=== PATIENT | female | born 1980 | race African-American/Black ===

== ENCOUNTER → 2016-11-15 | Outpatient (CLI) | payer MEDICAID ==
--- NOTE | 2016-11-16 11:37 | RADIOLOGY REPORT (SQ) ---
EXAM DESCRIPTION: MRI RT UPPER JOINT COMBO COMPLETED DATE/TIME: 11/15/2016 8:55 pm REASON FOR STUDY: PAIN IN RIGHT WRIST M25.531 PAIN IN RIGHT WRIST COMPARISON: Right hand films 05/13/2011 TECHNIQUE: Right wrist images acquired and stored on PACS. Multiplanar images include fat sensitive sequences as T1, fluid sensitive sequences as FST2/STIR, cartilage sensitive sequences as FSPD, grad ient echo sequences. Postcontrast T1 fat-sat axial coronal and sagittal images were also obtained. Patient was injected with 14 mL of IV ProHance gadolinium. Estimated GFR greater than 60 LIMITATIONS: None. FINDINGS: At the intersection of the capitate bone, trapezoid, and base of the 3rd metacarpal, there is a bulky bone spur protrudes dorsally off the capitate and base of the 3rd metacarpal. This displ aces the extensor are carpi the radialis brevis tendon dorsally. There is minimal enhancement of the peritendinous soft tissues on the post gadolinium images indicating some clinical inflammatory connell e. These findings are best shown on axial images 9-12, sagittal image 11, and coronal images 4-6. Along the radial aspect of the bone spur, a 4 x 3 x 4 mm ganglion cyst is present off the dorsal aspe ct of the wrist, best shown on axial image 12, sagittal image 9, and coronal image 5. BONE MARROW: No alteration of signal to suggest marrow replacement or edema. No occult fracture. No abnormal bone marrow enhancement CARPAL ALIGNMENT AND ARTICULATION: Minimal negative ulnar variance at level of distal RUJ. Normal cap itolunate angle. No widening of scapholunate articulation. EFFUSION: None noted. No loose bodies. SCAPHOLUNATE LIGAMENT: Intact without tear. LUNATE-TRIQUETRAL LIGAMENT: Intact without tear. TFC COMPLEX: Radial and ulnar attachments normal. Meniscus intact. Extensor carpi ulnaris tendon norm al without tendinopathy. No contrast enhancement around the TFC. EXTRINSIC LIGAMENTS AND DISTAL RADIO-ULNAR JOINT: Dorsal and volar distal RUJ intact without subluxat ion of the distal ulna. 1-6 EXTENSOR COMPARTMENTS: Normal. Specifically no tendinopathy of the abductor pollicis longus or ex tensor pollicis brevis to suggest de Quervain's Syndrome. CARPAL TUNNEL AND MEDIAN NERVE: Normal volume and morphology of the carpal tunnel proximally at the l evel of the radiocarpal joint and distally at the hook of the hamate. No thickening or signal alterat ion of the median nerve. OTHER: No other significant finding. IMPRESSION: Bulky bony spurring at the intersection of the capitate, trapezoid, and base of the 3rd metacarpal. This displaces the extensor carpi radialis brevis tendon dorsally. Adjacent small 4 x 3 x 4 mm ganglion cyst. TECHNICAL DOCUMENTATION: JOB ID: [id number] [email or web address]- All Rights Reserved
== END ==
LOC: RAD 18:59
PROVIDERS: ATTEND Orthopaedic Surgery
DX: M25.531 Pain in right wrist (principal); M67.431 Ganglion, right wrist; M77.9 Enthesopathy, unspecified
CPT/HCPCS: 82565; 73223; A9576 ×2

== ENCOUNTER 2017-04-02 07:09 | Day surgery (SDC) | payer MEDICAID ==
[2017-03-28 11:09] LABS: APPEARANCE,URINE CLOUDY; BILIRUBIN,URINE NEGATIVE (NEGATIVE); COLOR,URINE YELLOW; GLUCOSE, URINE NEGATIVE (NEGATIVE); KETONES,URINE NEGATIVE (NEGATIVE); LEUKOCYTE ESTERASE,URINE SMALL (NEGATIVE); NITRITE,URINE NEGATIVE (NEGATIVE); PROTEIN,URINE 30 mg/dL (NEGATIVE); URINE SPECIFIC GRAVITY 1.011; UROBILINOGEN,URINE NEGATIVE mg/dL (<2.0)
[2017-03-28 11:23] LABS: ABSOLUTE BASOPHILS # (AUTO) 0.1 10^3/uL (0.0-0.2); ABSOLUTE EOSINOPHILS # (AUTO) 0.1 10^3/uL (0.0-0.6); ABSOLUTE MONOCYTES (AUTO) 0.5 10^3/uL (0.1-1.4); ABSOLUTE NEUT (AUTO) 7.3 10^3/uL (1.7-8.2); BASOPHILS % (AUTO) 0.6 % (0-2); EOSINOPHILS % (AUTO) 0.6 % (0-6); HEMATOCRIT 39.8 % (36.0-47.0); LYMPHOCYTES % (AUTO) 20.6 % (13-45); MEAN CORPUSCULAR HEMOGLOBIN 26.8 pg (27.0-33.4); MEAN CORPUSCULAR HGB CONC 32.6 g/dL (32.0-36.0); MEAN CORPUSCULAR VOLUME 82 fl (80-97); MONOCYTES % (AUTO) 4.6 % (3-13); PLATELET COUNT 721 10^3/uL (150-450); RED BLOOD COUNT 4.85 10^6/uL (3.72-5.28); RED CELL DISTRIBUTION WIDTH 15.3 % (11.5-14.0); SEGMENTED NEUTROPHILS % (AUTO) 73.6 % (42-78); TOTAL CELLS COUNTED % (AUTO) 100 %; WHITE BLOOD COUNT 9.9 10^3/uL (4.0-10.5)
[2017-03-28 11:51] LABS: ANION GAP 11 (5-19); BLOOD UREA NITROGEN 13 mg/dL (7-20); CALCIUM 10.1 mg/dL (8.4-10.2); CARBON DIOXIDE 22 mmol/L (22-30); CHLORIDE 107 mmol/L (98-107); GLUCOSE 89 mg/dL (75-110); POTASSIUM 5.3 mmol/L (3.6-5.0); SODIUM 139.5 mmol/L (137-145)
--- NOTE | 2017-03-28 12:09 | RADIOLOGY REPORT (SQ) ---
EXAM DESCRIPTION: CHEST PA/LATERAL COMPLETED DATE/TIME: 03/28/2017 11:07 am REASON FOR STUDY: PRE OP COMPARISON: None. EXAM PARAMETERS: NUMBER OF VIEWS: two views TECHNIQUE: Digital Frontal and Lateral radiographic views of the chest acquired. RADIATION DOSE: NA LIMITATIONS: none FINDINGS: LUNGS AND PLEURA: No opacities, masses or pneumothorax. No pleural effusion. MEDIASTINUM AND HILAR STRUCTURES: No masses or contour abnormalities. HEART AND VASCULAR STRUCTURES: Heart normal size. No evidence for failure. BONES: No acute findings. HARDWARE: None in the chest. OTHER: No other significant finding. IMPRESSION: NO SIGNIFICANT RADIOGRAPHIC FINDING IN THE CHEST. TECHNICAL DOCUMENTATION: JOB ID: [id number] [employer]- All Rights Reserved
--- NOTE | 2017-03-28 22:37 | EKG REPORT ---
SEVERITY:- NORMAL ECG - SINUS RHYTHM : Confirmed by: Melly Wesley 28-Mar-2017 22:36:46
[~2017-04-02 07:09] MED LIST: CEFAZOLIN 2 GM/D5W RTU 2 GM/50 ML RTUPB IV PRN; LACTATED RINGERS 1000 ML IV PRN; LIDOCAINE 0.5% INJ-PF (5 MG/ML) 50 ML SDV SUBCUT PRN
[2017-04-02] MEDS ORDERED: BUPIVACAINE HCL 0.5 % INJ/PF 30 ML SDV ONE (07:12)
[2017-04-02] MEDS ORDERED: FENTANYL CITRATE INJ/PF 100 MCG/2 ML AMPUL ONE ×4 (08:16→10:56)
[2017-04-02] MEDS ORDERED: ONDANSETRON HCL INJ/PF 4 MG/2 ML SDV ONE (08:16)
[2017-04-02] MEDS ORDERED: MIDAZOLAM 2 MG/2 ML INJ ONE (08:16)
[2017-04-02] MEDS ORDERED: PROPOFOL INJ 200 MG/20 ML VIAL IV ONE (08:16)
[2017-04-02] MEDS ORDERED: MEPERIDINE HCL/PF INJ 25 MG/1 ML DISP.SYRIN IV PRN (09:31)
[2017-04-02] MEDS ORDERED: DIPHENHYDRAMINE HCL 50 MG/ML VIAL IV PRN (09:31)
[2017-04-02] MEDS ORDERED: ONDANSETRON HCL INJ/PF 4 MG/2 ML SDV IV PRN ×2 (09:31→10:37)
[2017-04-02] MEDS ORDERED: FENTANYL CITRATE INJ/PF 100 MCG/2 ML AMPUL IV PRN ×2 (09:31)
--- NOTE | 2017-04-02 10:35 | Operative Report ---
Operative Report DATE OF SURGERY: 04/02/17 PREOPERATIVE DIAGNOSIS: Right carpometacarpal boss POSTOPERATIVE DIAGNOSIS: Same OPERATION: Excision right carpometacarpal boss SURGEON: DEBO VACA ANESTHESIA: GA TISSUE REMOVED OR ALTERED: Metacarpal boss sent to pathology COMPLICATIONS: None ESTIMATED BLOOD LOSS: Minimal PROCEDURE: Indication for above procedure: 36-year-old female with complaints of dorsal wrist pain with prominence. Patient radiographic findings and MRI confirming carpal metacarpal boss which is causing irritation of her overlying extensor tendons. We attempted conservative measures without resolution of patient's symptoms at that point decision was made to proceed with operative intervention. Procedure In Detail: Patient was seen and evaluated in the preoperative holding area. The RIGHT upper extremity was initialized and marked. Patient received 2g of Ancef IV for bacterial prophylaxis. Patient was taken back to the operative room where transferred to the operative table and placed under general anesthesia. Once they were adequately anesthetized a nonsterile tourniquet was placed on the upper extremity. A surgical team debriefing was performed ensuring all instrumentation was available, the surgical procedure was discussed with possible concerns reviewed. The upper extremity was prepped with chlorhexidine and alcohol and draped in a sterile fashion. A timeout was done identifying correct patient, procedure and extremity everyone in attendance agree with this and verbalized no concerns. The extremity was exsanguinated the tourniquet was inflated to 250 mmHg. Transverse skin incision was made centered over patient's carpometacarpal boss at the second third metacarpal bases. Blunt dissection was performed any superficial veins were coagulated with bipolar cautery. The interval between the ECRB and ECRL was then split exposing the metacarpal boss. This was elevated subperiosteally to completely localize the metacarpal boss involving the second and third carpometacarpal joint. I used a rongeur to excise the metacarpal boss. There was still remaining bone dorsally thus with a small osteotome I excised the excess bony overgrowth until only normal cartilage remained. Once complete this area was smoothed with a rasp to avoid postoperative irritation. There is no evidence of CMC instability after bone excision. C-arm fluoroscopy was obtained confirming adequate excision without evidence of joint irregularity. The wound was then copiously irrigated with normal saline. The bone edges were covered with bone wax. I then closed the capsule over the exposed bone with interrupted 3-0 Monocryl suture. Skin was closed with a running subcuticular 4- 0 Monocryl reinforced with Dermabond and Steri-Strips. 20 cc of 0.5% Marcaine with epinephrine was injected for postoperative pain control. Patient was placed in a dorsal plaster splint. Sponge counts, instrument counts, needle counts counts were correct. Patient was then awoken from anesthesia. Transferred from the operating room table to the operating room stretcher. There was no intraoperative complications patient tolerated procedure well stable to PACU. Postoperative plan: Patient will follow-up the office in 2 weeks at which point we will transition the patient into a Exos wrist brace.
[2017-04-02] MEDS ORDERED: MORPHINE SULFATE 10 MG/ML INJ IV PRN (10:37)
[2017-04-02] MEDS ORDERED: OXYCODONE-ACETAMINOPHEN 5-325 MG TABLET PO PRN (10:37)
--- NOTE | 2017-04-02 10:37 | Discharge Summary ---
Discharge Summary (SDC) - Discharge Final Diagnosis: Right Wrist Metacarpal Boss Date of Surgery: 04/02/17 Discharge Date: 04/02/17 Condition: Good Treatment or Instructions: Schedule Follow Up w/ Dr. Noel Reyes @ [facility] to be seen in 10-14 days or as scheduled [place]: [place]: [place]: Ice and elevate Keep splint clean/dry/intact. If your fingers become numb please unwrap the Jose D wrap but leave the splint in place, if the sensation does not return within 30 minutes please return to the emergency department. May begin finger range of motion attempting to make full fist. Please use ibuprofen (Motrin or Advil) 600-800 mg every 8 hours as needed for pain or fever. You may also use acetaminophen (Tylenol) 1000 mg every 4-6 hours as needed for pain or fever. Please be aware that many medications contain acetaminophen, do not exceed a total of 1000 mg of acetaminophen every 6 hours. If ibuprofen and acetaminophen are not sufficient for your pain you may take the Percocet/Tijeras. Please be aware that the Percocet/Tijeras does contain Tylenol. Stool softener of choice when on pain medication. Prescriptions: Hydrocodone/Acetaminophen [Tijeras 5-325 mg Tablet] 1 tab PO Q6 PRN #20 tablet PRN Reason: Referrals: DONAL MARINELLI MD [Primary Care Provider] - Respiratory Treatments at Home: Deep Breathing/Coughing Discharge Activity: No Lifting Over 10 Pounds, No Lifting/Push/Pulling Report the Following to Your Physician Immediately: Fever over 101 Degrees, Unusual Bleeding, Redness, Swelling, Warmth, Increased Soreness
[2017-04-02] MEDS: FENTANYL CITRATE INJ/PF 100 MCG/2 ML AMPUL IV PRN ×2 (10:58→11:04)
[2017-04-02] MEDS ORDERED: ONDANSETRON 4 MG TAB.RAPDIS ONE (12:36)
[2017-04-02 12:54] VITALS: BP 158/100
--- NOTE | 2017-04-02 16:03 | RADIOLOGY REPORT (SQ) ---
EXAM DESCRIPTION: NO CHG FLUORO; WRIST RIGHT 2 VIEWS COMPLETED DATE/TIME: 04/02/2017 10:59 am REASON FOR STUDY: EXCISION RT CARPOMETACARPAL BASE ASST WITH FLUORO IN OR M77.21 PERIARTHRITIS, RIG HT WRIST COMPARISON: None. FLUOROSCOPY TIME: 9 seconds. 3 images saved to PACS. TECHNIQUE: Intra-operative images acquired during surgical procedure to evaluate progress. NUMBER OF IMAGES: 3 LIMITATIONS: None. FINDINGS: Images of the wrist acquired during the procedure. IMPRESSION: IMAGE(S) OBTAINED DURING PROCEDURE. COMMENT: Quality ID [id number]: Final reports for procedures using fluoroscopy that document radiation exp osure indices, or exposure time and number of fluorographic images (if radiation exposure indices are not available) Please consult full operative report of the attending physician for description of the procedure. TECHNICAL DOCUMENTATION: JOB ID: [id number] [employer]- All Rights Reserved
== END 2017-04-02 12:45 | disposition home or self-care (01) ==
LOC: OROUT 07:09
PROVIDERS: ATTEND Orthopaedic Surgery
PROC: 0PBP0ZZ Excision of Right Metacarpal, Open Approach (ICD-10-PCS; principal; 2017-04-02 09:30)
DX: M77.9 Enthesopathy, unspecified (principal); M25.731 Osteophyte, right wrist; I10 Essential (primary) hypertension; E78.5 Hyperlipidemia, unspecified; Z79.899 Other long term (current) drug therapy
CPT/HCPCS: 26230; 93005; 36415 ×2; 84132; 84703; 85025; 80048; 81001; 88304 ×2; 88311; 71046; 73100; 93010; J2250; J3490; S0119; J3010; J2405; J2704; J0690; 01830

== ENCOUNTER 2017-08-29 05:20 | Inpatient (IN) | payer MEDICAID ==
[2017-08-20 10:39] LABS: HEMATOCRIT 41.5 % (36.0-47.0); HEMOGLOBIN 13.5 g/dL (12.0-15.5); MEAN CORPUSCULAR HEMOGLOBIN 26.9 pg (27.0-33.4); MEAN CORPUSCULAR HGB CONC 32.6 g/dL (32.0-36.0); MEAN CORPUSCULAR VOLUME 82 fl (80-97); PLATELET COUNT 555 10^3/uL (150-450); RED BLOOD COUNT 5.03 10^6/uL (3.72-5.28); RED CELL DISTRIBUTION WIDTH 15.5 % (11.5-14.0); WHITE BLOOD COUNT 9.1 10^3/uL (4.0-10.5)
[2017-08-20 10:59] LABS: APPEARANCE,URINE SLIGHTLY-CLOUDY; BILIRUBIN,URINE NEGATIVE (NEGATIVE); COLOR,URINE YELLOW; GLUCOSE, URINE NEGATIVE (NEGATIVE); KETONES,URINE NEGATIVE (NEGATIVE); LEUKOCYTE ESTERASE,URINE TRACE (NEGATIVE); NITRITE,URINE NEGATIVE (NEGATIVE); PROTEIN,URINE 30 mg/dL (NEGATIVE); UROBILINOGEN,URINE NEGATIVE mg/dL (<2.0)
[2017-08-20 11:06] LABS: ALANINE AMINOTRANSFERASE 19 U/L (9-52); ALBUMIN 4.1 g/dL (3.5-5.0); ALKALINE PHOSPHATASE 70 U/L (38-126); ANION GAP 12 (5-19); ASPARTATE AMINO TRANSFERASE 26 U/L (14-36); BILIRUBIN,DIRECT 0.4 mg/dL (0.0-0.4); BILIRUBIN,TOTAL 0.6 mg/dL (0.2-1.3); BLOOD UREA NITROGEN 16 mg/dL (7-20); CALCIUM 9.7 mg/dL (8.4-10.2); CARBON DIOXIDE 22 mmol/L (22-30); CHLORIDE 107 mmol/L (98-107); GLUCOSE 111 mg/dL (75-110); SODIUM 141.1 mmol/L (137-145); TOTAL PROTEIN 7.7 g/dL (6.3-8.2)
[~2017-08-29 05:20] MED LIST changes: +CEFAZOLIN 1 GM/D5W RTU 1 GM/50 ML RTUPB IV PRN; -CEFAZOLIN 2 GM/D5W RTU 2 GM/50 ML RTUPB IV PRN
[2017-08-29] MEDS ORDERED: MIDAZOLAM 2 MG/2 ML INJ ONE (06:49)
[2017-08-29] MEDS ORDERED: LIDOCAINE 2% INJ-PF (20 MG/ML) 10 ML AMPUL ONE (06:49)
[2017-08-29] MEDS ORDERED: KETOROLAC TROMETHAMINE 60 MG/2 ML SDV ONE (06:49)
[2017-08-29] MEDS ORDERED: FENTANYL CITRATE INJ/PF 250 MCG/5 ML AMPULE ONE ×2 (06:49→08:33)
[2017-08-29] MEDS ORDERED: MORPHINE SULFATE 10 MG/ML INJ ONE (06:50)
[2017-08-29] MEDS ORDERED: PROPOFOL INJ 200 MG/20 ML VIAL IV ONE (06:50)
[2017-08-29] MEDS ORDERED: EPHEDRINE SULFATE INJ 50 MG/1 ML AMPULE ONE (06:50)
[2017-08-29] MEDS ORDERED: ACETAMINOPHEN 1,000 MG/100 ML RTUPB IV ONE (06:50)
[2017-08-29] MEDS ORDERED: ONDANSETRON HCL INJ/PF 4 MG/2 ML SDV ONE (06:50)
[2017-08-29] MEDS ORDERED: DEXAMETHASONE SOD PHOSPHATE INJ 4 MG/1 ML VIAL ONE (06:50)
[2017-08-29] MEDS ORDERED: BUPIVACAINE HCL 0.25 % INJ/PF (2.5 MG/1 ML) 30 ML VIAL ONE (07:08)
[2017-08-29] MEDS ORDERED: CEFAZOLIN INJ 1 GM VIAL ONE (07:41)
[2017-08-29] MEDS ORDERED: MEPERIDINE HCL/PF INJ 25 MG/1 ML DISP.SYRIN IV PRN (08:28)
[2017-08-29] MEDS ORDERED: ONDANSETRON HCL INJ/PF 4 MG/2 ML SDV IV PRN (08:28)
[2017-08-29] MEDS ORDERED: FENTANYL CITRATE INJ/PF 100 MCG/2 ML AMPUL IV PRN ×3 (08:28)
[2017-08-29] MEDS ORDERED: PROMETHAZINE HCL INJ 25 MG/1 ML VIAL IV PRN ×2 (08:28)
[2017-08-29] MEDS ORDERED: MORPHINE SULFATE 10 MG/ML INJ IV PRN (08:28)
[2017-08-29] MEDS ORDERED: DIPHENHYDRAMINE HCL 50 MG/ML VIAL IV PRN (08:28)
--- NOTE | 2017-08-29 09:33 | OPERATIVE REPORT E ---
Operative Report NAME: KLEVER MAZA : 1980 AGE: 36Y DATE OF SURGERY: 08/29/2017 ROOM: PREOPERATIVE DIAGNOSIS: Fibroids. POSTOPERATIVE DIAGNOSIS: Fibroids. OPERATION: Attempted robotic hysterectomy with diagnostic laparoscopy, open laparotomy with BENNY and bilateral salpingectomy. SURGEON: Stephanie SIM M.D. ANESTHESIA: General. ESTIMATED BLOOD LOSS: Approximately 500 mL. TISSUE REMOVED: Uterus and tubes. PROCEDURE: The patient was placed in a dorsal supine position, prepped, and draped in a sterile fashion. A speculum was placed. The cervix was visualized and grasped with a single-tooth tenaculum. The uterus was sounded to a depth of 15 cm. A uterine manipulator was placed per protocol and attention turned to the abdomen where a supraumbilical incision was made. The laparoscope was then introduced after insufflation of the abdomen and the uterus contained multiple fibroids extending up to the umbilicus. It was determined at that point that it was safer to do an open procedure. The laparoscope was removed, abdomen deflated, trocar sleeves removed, and incisions closed with 0 Vicryl for the fascia and 4-0 Vicryl subcutaneous. The midline incision was made just above the symphysis to the umbilicus and carried around to the left and approximately 3 cm above. The fascia was opened with sharp dissection and parietal peritoneum was entered with sharp dissection. The bowel was packed with wet lap packs and the O'Marko-O'Pham retractor was placed. Prior to this time the uterine manipulator was removed. The rounds were identified and sutured and divided, and then 2 myomectomies were done for 1 fibroid on the right that was approximately 18 cm x 10 cm and then on the left approximately 8 x 5 cm. Using serial clamps on each side of the uterus, each pedicle was divided and sutured with 2-0 Vicryl. This was taken down to the level slightly above the cervix. The uterus was then removed and the remaining cervix removed by clamping each pedicle, dividing, and suturing with 2-0 Vicryl. The cervix was crossclamped and the cervix removed. The cuff was closed with interrupted suture of 2-0 Vicryl. Hemostasis was noted, the uterus having been removed. The abdomen was irrigated with copious amounts of irrigation. Hemostasis was noted. Her urine remained clear throughout the procedure. The retractor was removed, as were the packs. Fascia was closed with #1 PDS in a running fashion, the subcutaneous with interrupted 0 plain, and the skin with chantal. The patient tolerated it well and was taken to the recovery room in good condition. DICTATING PHYSICIAN: Stephanie SIM M.D. [id number] PHY#: [id number] ID: [id number] JOB#: [id number] ACCT: [id number] cc:Stephanie SIM M.D. >
[2017-08-29] MEDS ORDERED: HYDROMORPHONE HCL 2 MG TABLET PO PRN (09:54)
[2017-08-29] MEDS ORDERED: VECURONIUM BROMIDE INJ 10 MG VIAL IV ONE (12:26)
[2017-08-29] MEDS ORDERED: ROCURONIUM BROMIDE INJ 50 MG/5 ML VIAL IV ONE (12:26)
[2017-08-29] MEDS ORDERED: GLYCOPYRROLATE INJ 0.4 MG/2 ML VIAL ONE (12:26)
[2017-08-29] MEDS ORDERED: NEOSTIGMINE METHYLSULFATE 10 MG/10 ML VIAL ONE (12:26)
[2017-08-29] MEDS: DEXTROSE 5%-LACTATED RINGERS 1,000 ML IV PRN (14:24)
[2017-08-29] MEDS: MORPHINE SULFATE 10 MG/ML INJ IV PRN (14:24)
[2017-08-29] MEDS: IBUPROFEN 800 MG TABLET PO SCH ×2 (14:25→22:03)
[2017-08-29] MEDS: MAGNESIUM OXIDE 400 MG TABLET PO SCH (17:38)
[2017-08-29] MEDS: FUROSEMIDE 20 MG TABLET PO SCH (17:41)
[2017-08-29] MEDS: ONDANSETRON 4 MG TAB.RAPDIS PO PRN (19:02)
[2017-08-30] MEDS: ONDANSETRON 4 MG TAB.RAPDIS PO PRN ×3 (02:40→17:26)
[2017-08-30] MEDS: IBUPROFEN 800 MG TABLET PO SCH ×2 (05:17→14:10)
[2017-08-30] MEDS: DEXTROSE 5%-LACTATED RINGERS 1,000 ML IV PRN (07:20)
[2017-08-30] MEDS: MORPHINE SULFATE 10 MG/ML INJ IV PRN (08:38)
[2017-08-30] MEDS ORDERED: [UNRECOGNIZED DRUG - OTHER] TP SCH (10:00)
[2017-08-30] MEDS ORDERED: (PENDING PHARMACY ID) (Enalapril Maleate [Enalapril Maleate] 20 MG) PO SCH (10:00)
[2017-08-30] MEDS ORDERED: MV CAL MIN PO SCH (10:00)
[2017-08-30] MEDS ORDERED: IRON PO SCH (10:00)
[2017-08-30] MEDS ORDERED: LUT PO SCH (10:00)
[2017-08-30] MEDS ORDERED: FOLIC ACID PO SCH (10:00)
[2017-08-30] MEDS ORDERED: CYCLOSPORINE 100 MG PO SCH (10:00)
[2017-08-30] MEDS: PRENATAL VITAMIN W DHA CAPSULE PO SCH (10:05)
[2017-08-30] MEDS: CYCLOSPORINE MODIFIED 100 MG PO SCH (10:05)
[2017-08-30] MEDS: FUROSEMIDE 20 MG TABLET PO SCH ×2 (10:06→17:25)
[2017-08-30] MEDS: ENALAPRIL MALEATE 10 MG TABLET PO SCH (10:06)
[2017-08-30] MEDS: OXYCODONE-ACETAMINOPHEN 5-325 MG TABLET PO PRN ×2 (10:06→19:31)
[2017-08-30] MEDS: MAGNESIUM OXIDE 400 MG TABLET PO SCH ×2 (10:06→17:25)
--- NOTE | 2017-08-30 11:29 | PDOC PROGRESS REPORT ---
Subjective Progress Note for:: 08/30/17 Subjective:: pt does not have any complaints Reason For Visit: R10.31 RIGHT LOWER QUADRANT PAIN Physical Exam - Physical Exam Vital Signs: Temp Pulse Resp BP Pulse Ox 98.4 F 113 H 18 133/70 H 99 08/30/17 07:19 08/30/17 07:19 08/30/17 07:19 08/30/17 07:19 08/30/17 07:19 Intake & Output 08/29/17 08/30/17 08/31/17 06:59 06:59 06:59 Intake Total 0 4380 Output Total 2650 Balance 0 1730 Weight 78.02 kg General appearance: PRESENT: no acute distress Respiratory exam: PRESENT: clear to auscultation rupali Neurological exam: PRESENT: alert Result Laboratory Results: 08/20/17 10:14 08/29/17 06:03 Assessment & Plan - Diagnosis (1) Fibroid (bleeding) (uterine) Is this a current diagnosis for this admission?: Yes (2) Dysmenorrhea Is this a current diagnosis for this admission?: Yes - Time Time Spent with patient: Less than 15 minutes Medications reviewed and adjusted accordingly: Yes Anticipated discharge: Home Within: within 24 hours
[2017-08-30] MEDS ORDERED: BISACODYL 10 MG SUPP.RECT PR ONE (15:00)
[2017-08-31] MEDS: OXYCODONE-ACETAMINOPHEN 5-325 MG TABLET PO PRN ×2 (01:33→09:36)
[2017-08-31] MEDS: IBUPROFEN 800 MG TABLET PO SCH ×3 (05:05→22:17)
[2017-08-31 07:52] LABS: HEMATOCRIT 20.9 % (36.0-47.0); MEAN CORPUSCULAR HGB CONC 33.5 g/dL (32.0-36.0); MEAN CORPUSCULAR VOLUME 80 fl (80-97); RED CELL DISTRIBUTION WIDTH 15.1 % (11.5-14.0); WHITE BLOOD COUNT 15.8 10^3/uL (4.0-10.5)
[2017-08-31 08:33] LABS: PLATELET COUNT 596 10^3/uL (150-450)
--- NOTE | 2017-08-31 09:07 | PDOC PROGRESS REPORT ---
Subjective Progress Note for:: 08/31/17 Subjective:: reports pain controlled on percocet, ambulated just once yesterday with symptomatic dizziness, noted tachycardia. hemoglobin 7 down from 13. declined blood transfusions. tolerating PO. voiding well. Reason For Visit: R10.31 RIGHT LOWER QUADRANT PAIN Physical Exam - Physical Exam Vital Signs: Temp Pulse Resp BP Pulse Ox 98.2 F 101 H 18 125/73 94 08/31/17 08:01 08/31/17 08:01 08/31/17 08:01 08/31/17 08:01 08/31/17 08:01 Intake & Output 08/30/17 08/31/17 09/01/17 06:59 06:59 06:59 Intake Total 4380 500 Output Total 2650 300 Balance 1730 -300 500 General appearance: PRESENT: no acute distress Head exam: PRESENT: atraumatic Cardiovascular exam: PRESENT: RRR, tachycardia GI/Abdominal exam: PRESENT: soft, other - abdomen: ttp. mildly distended. chantal intact. no erythema c/d/i Musculoskeletal exam: PRESENT: ambulatory Neurological exam: PRESENT: alert, altered, awake Result Laboratory Results: 08/31/17 07:30 08/29/17 06:03 08/31/17 07:30 WBC 15.8 H RBC 2.60 L Hgb 7.0 L Hct 20.9 L MCV 80 MCH 27.0 MCHC 33.5 RDW 15.1 H Plt Count 596 H Impressions: anemia Assessment & Plan - Diagnosis (1) Acute blood loss anemia Is this a current diagnosis for this admission?: Yes Plan: offered transfusions - declined recheck cbc in AM, if <7 then to review need for transfusion continue on iron therapy (2) Dysmenorrhea Is this a current diagnosis for this admission?: Yes Plan: s/p hysterectomy (3) Fibroid (bleeding) (uterine) Is this a current diagnosis for this admission?: Yes Plan: s/p hysterectomy await pathology results
[2017-08-31] MEDS: PRENATAL VITAMIN W DHA CAPSULE PO SCH (09:33)
[2017-08-31] MEDS: FUROSEMIDE 20 MG TABLET PO SCH ×2 (09:33→17:02)
[2017-08-31] MEDS: ENALAPRIL MALEATE 10 MG TABLET PO SCH (09:33)
[2017-08-31] MEDS: MAGNESIUM OXIDE 400 MG TABLET PO SCH ×2 (09:33→17:02)
[2017-08-31] MEDS: CYCLOSPORINE MODIFIED 100 MG PO SCH (09:34)
[2017-08-31] MEDS: ONDANSETRON 4 MG TAB.RAPDIS PO PRN (11:10)
[2017-09-01] MEDS: IBUPROFEN 800 MG TABLET PO SCH ×3 (06:06→21:42)
[2017-09-01 07:11] LABS: HEMATOCRIT 18.8 % (36.0-47.0); MEAN CORPUSCULAR HEMOGLOBIN 27.7 pg (27.0-33.4); MEAN CORPUSCULAR HGB CONC 34.1 g/dL (32.0-36.0); MEAN CORPUSCULAR VOLUME 81 fl (80-97); PLATELET COUNT 469 10^3/uL (150-450); RED BLOOD COUNT 2.32 10^6/uL (3.72-5.28); RED CELL DISTRIBUTION WIDTH 14.8 % (11.5-14.0); WHITE BLOOD COUNT 8.9 10^3/uL (4.0-10.5)
[2017-09-01 07:21] LABS: HEMOGLOBIN 6.4 g/dL (12.0-15.5)
[2017-09-01] MEDS: PRENATAL VITAMIN W DHA CAPSULE PO SCH (10:14)
[2017-09-01] MEDS: MAGNESIUM OXIDE 400 MG TABLET PO SCH ×2 (10:14→17:28)
[2017-09-01] MEDS: ENALAPRIL MALEATE 10 MG TABLET PO SCH (10:14)
[2017-09-01] MEDS: FUROSEMIDE 20 MG TABLET PO SCH ×2 (10:14→17:28)
[2017-09-01] MEDS: CYCLOSPORINE MODIFIED 100 MG PO SCH (10:15)
[2017-09-01] MEDS ORDERED: DIPHENHYDRAMINE HCL 25 MG CAPSULE PO PRN (10:36)
[2017-09-01] MEDS ORDERED: ACETAMINOPHEN 325 MG TABLET PO PRN (10:36)
--- NOTE | 2017-09-01 10:54 | PDOC PROGRESS REPORT ---
Subjective Progress Note for:: 09/01/17 Subjective:: pt states she feels well but dizzy pt's nausea is better but no BM Reason For Visit: R10.31 RIGHT LOWER QUADRANT PAIN Physical Exam - Physical Exam Vital Signs: Temp Pulse Resp BP Pulse Ox 98.1 F 96 16 119/76 96 09/01/17 07:15 09/01/17 07:15 09/01/17 07:15 09/01/17 07:15 09/01/17 07:15 Intake & Output 08/31/17 09/01/17 09/02/17 06:59 06:59 06:59 Intake Total 820 Output Total 300 Balance -300 820 Weight 82.6 kg General appearance: PRESENT: no acute distress Respiratory exam: PRESENT: clear to auscultation rupali Result Laboratory Results: 09/01/17 06:09 08/29/17 06:03 09/01/17 06:09 WBC 8.9 RBC 2.32 L Hgb 6.4 L Hct 18.8 L MCV 81 MCH 27.7 MCHC 34.1 RDW 14.8 H Plt Count 469 H Assessment & Plan - Diagnosis (1) Fibroid (bleeding) (uterine) Is this a current diagnosis for this admission?: Yes (2) Dysmenorrhea Is this a current diagnosis for this admission?: Yes (3) Anemia Qualifiers: Anemia type: other cause Other causes of anemia: acute posthemorrhagic Qualified Code(s): D62 - Acute posthemorrhagic anemia Is this a current diagnosis for this admission?: Yes - Plan Summary Plan Summary: plan transfusion and stimulate bowel
[2017-09-01] MEDS ORDERED: MINERAL OIL ENEMA 133 ML PR ONE (11:30)
[2017-09-02] MEDS: OXYCODONE-ACETAMINOPHEN 5-325 MG TABLET PO PRN (01:51)
[2017-09-02 04:28] LABS: ABSOLUTE BASOPHILS # (AUTO) 0.1 10^3/uL (0.0-0.2); ABSOLUTE EOSINOPHILS # (AUTO) 0.2 10^3/uL (0.0-0.6); ABSOLUTE LYMPHOCYTES (AUTO) 2.2 10^3/uL (0.5-4.7); ABSOLUTE MONOCYTES (AUTO) 0.6 10^3/uL (0.1-1.4); ABSOLUTE NEUT (AUTO) 9.5 10^3/uL (1.7-8.2); BASOPHILS % (AUTO) 0.5 % (0-2); EOSINOPHILS % (AUTO) 1.8 % (0-6); HEMATOCRIT 38.9 % (36.0-47.0); LYMPHOCYTES % (AUTO) 17.6 % (13-45); MEAN CORPUSCULAR HEMOGLOBIN 28.6 pg (27.0-33.4); MEAN CORPUSCULAR HGB CONC 34.9 g/dL (32.0-36.0); MEAN CORPUSCULAR VOLUME 82 fl (80-97); MONOCYTES % (AUTO) 4.5 % (3-13); PLATELET COUNT 560 10^3/uL (150-450); RED BLOOD COUNT 4.74 10^6/uL (3.72-5.28); RED CELL DISTRIBUTION WIDTH 14.8 % (11.5-14.0); SEGMENTED NEUTROPHILS % (AUTO) 75.6 % (42-78); TOTAL CELLS COUNTED % (AUTO) 100 %; WHITE BLOOD COUNT 12.6 10^3/uL (4.0-10.5)
[2017-09-02 04:30] LABS: HEMOGLOBIN 13.6 g/dL (12.0-15.5)
[2017-09-02] MEDS: IBUPROFEN 800 MG TABLET PO SCH ×2 (05:28→15:09)
[2017-09-02] MEDS: CYCLOSPORINE MODIFIED 100 MG PO SCH (09:58)
[2017-09-02] MEDS: ENALAPRIL MALEATE 10 MG TABLET PO SCH (09:59)
--- NOTE | 2017-09-02 09:59 | PDOC PROGRESS REPORT ---
Subjective-OB Progress Note for:: 09/02/17 Subjective: OOB in room, feeling better today, denies dizziness Physical Exam (OB) Vital Signs: Temp Pulse Resp BP Pulse Ox 97.6 F 62 17 150/97 H 97 09/02/17 08:28 09/02/17 08:28 09/02/17 08:28 09/02/17 08:28 09/02/17 08:28 Intake & Output 09/01/17 09/02/17 09/03/17 06:59 06:59 06:59 Intake Total 820 1600 Balance 820 1600 Weight 82.6 kg 79.5 kg - Abdomen Hernia Present: No Objective-Diagnostic Laboratory: 09/02/17 04:12 08/29/17 06:03 09/01/17 09/02/17 11:48 04:12 WBC 12.6 H RBC 4.74 Hgb 13.6 D Hct 38.9 MCV 82 MCH 28.6 MCHC 34.9 RDW 14.8 H Plt Count 560 H Seg Neutrophils % 75.6 Lymphocytes % 17.6 Monocytes % 4.5 Eosinophils % 1.8 Basophils % 0.5 Absolute Neutrophils 9.5 H Absolute Lymphocytes 2.2 Absolute Monocytes 0.6 Absolute Eosinophils 0.2 Absolute Basophils 0.1 Blood Type A POSITIVE Antibody Screen NEGATIVE Assessment and Plan(PN) - Assessment and Plan (1) Acute blood loss anemia Is this a current diagnosis for this admission?: Yes (2) Dysmenorrhea Is this a current diagnosis for this admission?: Yes (3) Fibroid (bleeding) (uterine) Qualifiers: Uterine leiomyoma location: unspecified location Qualified Code(s): D25.9 - Leiomyoma of uterus, unspecified Is this a current diagnosis for this admission?: Yes (4) S/P BENNY (total abdominal hysterectomy) Is this a current diagnosis for this admission?: Yes - Time Spent with Patient Time with patient: Less than 15 minutes Medications reviewed and adjusted accordingly: Yes - Disposition Anticipated Discharge: Home Within: Other - home today per Dr. Fuentes's order
[2017-09-02] MEDS: MAGNESIUM OXIDE 400 MG TABLET PO SCH ×2 (10:00→17:37)
[2017-09-02] MEDS: FUROSEMIDE 20 MG TABLET PO SCH ×2 (10:00→17:37)
[2017-09-02] MEDS: PRENATAL VITAMIN W DHA CAPSULE PO SCH (10:01)
--- NOTE | 2017-09-02 10:13 | PDOC DISCHARGE SUMMARY ---
General - Admit/Disc Date/PCP Admission Date/Primary Care Provider: 08/29/17 05:21 DONAL MARINELLI MD Discharge Date: 09/02/17 - Discharge Diagnosis (1) Acute blood loss anemia Is this a current diagnosis for this admission?: Yes (2) Dysmenorrhea Is this a current diagnosis for this admission?: Yes (3) Fibroid (bleeding) (uterine) Is this a current diagnosis for this admission?: Yes (4) S/P BENNY (total abdominal hysterectomy) Is this a current diagnosis for this admission?: Yes - Additional Information Prescriptions: Oxycodone HCl/Acetaminophen [Percocet 5-325 mg Tablet] 2 tab PO Q6HP PRN #30 tablet PRN Reason: Home Medications: Furosemide [Lasix 20 mg Tablet] 1 tab PO BID 05/23/13 Modified Lanolin [Hpa Lanolin] 40 gm TP DAILY 03/28/17 Cyclosporine, Modified [Sandimmune "Modified" 100 mg Capsule] 100 mg PO DAILY capsule 09/02/17 Enalapril Maleate [Vasotec 10 mg Tablet] 20 mg PO DAILY tablet 09/02/17 Magnesium Oxide [Mag-Ox 400 mg Tablet] 400 mg PO BID tablet 09/02/17 Oxycodone HCl/Acetaminophen [Percocet 5-325 mg Tablet] 2 tab PO Q6HP PRN #30 tablet 09/02/17 Vit/Dha [ Multi + Dha Capsule] 1 cap PO DAILY capsule History of Present Illness History of Present Illness: KLEVER MAZA is a 36 year old female Hospital Course Hospital Course: received 4 units blood, pain under control Physical Exam - Physical Exam Vital Signs: Temp Pulse Resp BP Pulse Ox 97.6 F 62 17 150/97 H 97 09/02/17 08:28 09/02/17 08:28 09/02/17 08:28 09/02/17 08:28 09/02/17 08:28 Intake & Output 09/01/17 09/02/17 09/03/17 06:59 06:59 06:59 Intake Total 820 1600 Balance 820 1600 Weight 82.6 kg 79.5 kg Result Laboratory Results: 09/02/17 04:12 08/29/17 06:03 09/01/17 09/02/17 11:48 04:12 WBC 12.6 H RBC 4.74 Hgb 13.6 D Hct 38.9 MCV 82 MCH 28.6 MCHC 34.9 RDW 14.8 H Plt Count 560 H Seg Neutrophils % 75.6 Lymphocytes % 17.6 Monocytes % 4.5 Eosinophils % 1.8 Basophils % 0.5 Absolute Neutrophils 9.5 H Absolute Lymphocytes 2.2 Absolute Monocytes 0.6 Absolute Eosinophils 0.2 Absolute Basophils 0.1 Blood Type A POSITIVE Antibody Screen NEGATIVE Plan Discharge Plan: Home today, RTC Saturday, feeling better, rev S&S to report
[2017-09-02 16:48] VITALS: BP 154/96
--- NOTE | 2017-09-10 12:42 | OPERATIVE REPORT E ---
Operative Report NAME: KLEVER MAZA : 1980 AGE: 36Y DATE OF SURGERY: 08/29/2017 ROOM: 210 ADDENDUM: The patient's right fallopian tube was resected from the mesosalpinx using cautery. Continued to the level where it started into the uterus on the right and again on the left using cautery was from the mesosalpinx using cautery to the uterus. Both tubes were then divided and removed from the operative field. DICTATING PHYSICIAN: Stephanie SIM M.D. [id number] PHY#: [id number] ID: [id number] JOB#: [id number] ACCT: [id number] cc:Stephanie SIM M.D. >
--- NOTE | 2017-09-10 13:27 | PDOC DISCHARGE SUMMARY ---
Final Diagnosis Discharge Date: 09/02/17 Discharge Data - Discharge Medication Prescriptions: Oxycodone HCl/Acetaminophen [Percocet 5-325 mg Tablet] 2 tab PO Q6HP PRN #30 tablet PRN Reason: Home Medications: Furosemide [Lasix 20 mg Tablet] 1 tab PO BID 05/23/13 Modified Lanolin [Hpa Lanolin] 40 gm TP DAILY 03/28/17 Cyclosporine, Modified [Sandimmune "Modified" 100 mg Capsule] 100 mg PO DAILY capsule 09/02/17 Enalapril Maleate [Vasotec 10 mg Tablet] 20 mg PO DAILY tablet 09/02/17 Magnesium Oxide [Mag-Ox 400 mg Tablet] 400 mg PO BID tablet 09/02/17 Oxycodone HCl/Acetaminophen [Percocet 5-325 mg Tablet] 2 tab PO Q6HP PRN #30 tablet 09/02/17 Vit/Dha [ Multi + Dha Capsule] 1 cap PO DAILY capsule - Diagnosis Test Laboratory: Temp Pulse Resp BP Pulse Ox 98.6 F 64 18 154/96 H 96 09/02/17 16:13 09/02/17 16:13 09/02/17 16:13 09/02/17 16:13 09/02/17 16:13 08/20/17 08/31/17 09/01/17 10:14 07:30 06:09 RBC 5.03 2.60 L 2.32 L Hgb 13.5 7.0 L 6.4 L Hct 41.5 20.9 L 18.8 L 09/02/17 04:12 RBC 4.74 Hgb 13.6 D Hct 38.9 - Discharge information/Instructions Discharge Activity: Activity As Tolerated, Balance Activity w/Rest, No Driving, No Lifting Over 10 Pounds, No Lifting/Push/Pulling, Pelvic Rest, Slowly Increase Activity, No tub bath, Walk Frequently Discharge Diet: As Tolerated, Regular Disposition: HOME, SELF-CARE Follow up with: [facility] in: 1, Weeks
== END 2017-09-02 18:00 | disposition home or self-care (01) | DRG 742 ==
LOC: OROUT 05:20 → 2N 05:21 → OROUT 09-02 09:31
PROVIDERS: ADMIT Obstetrics & Gynecology Gynecology; ATTEND Obstetrics & Gynecology Gynecology
PROC: 0UT70ZZ Resection of Bilateral Fallopian Tubes, Open Approach (ICD-10-PCS; 2017-08-29)
PROC: 0UTC0ZZ Resection of Cervix, Open Approach (ICD-10-PCS; 2017-08-29)
PROC: 0UJD4ZZ Inspection of Uterus and Cervix, Percutaneous Endoscopic Approach (ICD-10-PCS; 2017-08-29)
PROC: 8E0W4CZ Robotic Assisted Procedure of Trunk Region, Percutaneous Endoscopic Approach (ICD-10-PCS; 2017-08-29)
PROC: 0UT90ZZ Resection of Uterus, Open Approach (ICD-10-PCS; principal; 2017-08-29 07:30)
PROC: 30233N1 Transfusion of Nonautologous Red Blood Cells into Peripheral Vein, Percutaneous Approach (ICD-10-PCS; 2017-09-01)
DX: D25.9 Leiomyoma of uterus, unspecified (principal); D62 Acute posthemorrhagic anemia; N92.5 Other specified irregular menstruation; R10.31 Right lower quadrant pain; I10 Essential (primary) hypertension; F79 Unspecified intellectual disabilities
CPT/HCPCS: 36415; 36430; 80053; 81001; 840; 84132; 84703; 85025; 85027; 86850; 86900; 86901; 86920; 88307; J0131; J0690; J1100; J1885; J2250; J2270; J2405; J2704; J3010; J3490; J7502; P9016; S0119

== ENCOUNTER 2018-03-17 08:44 | Emergency (ER) | payer MEDICAID ==
[2018-03-17 08:49] VITALS: BP 164/109
[2018-03-17] MEDS ORDERED: DEXAMETHASONE 4 MG TABLET PO ONE (09:23)
--- NOTE | 2018-03-17 09:25 | ER Document Report ---
ED General - General Chief Complaint: Flu Symptoms Stated Complaint: COLD SYMPTOMS Time Seen by Provider: 03/17/18 09:06 Primary Care Provider: DONAL MARINELLI MD [ACTIVE STAFF] - Follow up in 3-5 days TRAVEL OUTSIDE OF THE [place] IN LAST 30 DAYS: No - HPI Patient complains to provider of: Nasal congestion Notes: Patient coming in for evaluation of nasal congestion shortness of breath ongoing for approximate last month. Patient has not been on any antibiotics and unfortunately lost her PCP to the correction. Patient denies any fever chills nausea vomiting diarrhea denies any sick contacts patient did not receive a flu shot this year. Patient resting comfortably upon my evaluation also complaining of sore throat - Related Data Allergies/Adverse Reactions: codeine Allergy (Verified 03/17/18 08:45) aggressive behavior Sulfa (Sulfonamide Antibiotics) Allergy (Verified 03/17/18 08:45) rash Past Medical History - Social History Smoking Status: Unknown if Ever Smoked Family History: Reviewed & Not Pertinent - Past Medical History Cardiac Medical History: Reports: Hx Hypertension - ON MEDS Denies: Hx Coronary Artery Disease, Hx Heart Attack Pulmonary Medical History: Denies: Hx Asthma, Hx Bronchitis, Hx COPD, Hx Pneumonia Neurological Medical History: Denies: Hx Cerebrovascular Accident, Hx Seizures Musculoskeletal Medical History: Reports Hx Arthritis - LITA HANDS - Immunizations Hx Diphtheria, Pertussis, Tetanus Vaccination: No Review of Systems - Review of Systems Constitutional: No symptoms reported EENT: Nose congestion Cardiovascular: No symptoms reported Respiratory: No symptoms reported Gastrointestinal: No symptoms reported Genitourinary: No symptoms reported Female Genitourinary: No symptoms reported Musculoskeletal: No symptoms reported Skin: No symptoms reported Hematologic/Lymphatic: No symptoms reported Neurological/Psychological: No symptoms reported -: Yes All other systems reviewed and negative Physical Exam - Vital signs Vitals: Temp Pulse Resp BP Pulse Ox 97.9 F 85 18 164/109 H 99 03/17/18 08:48 03/17/18 08:48 03/17/18 08:48 03/17/18 08:48 03/17/18 08:48 Interpretation: Normal - General General appearance: Appears well, Alert - HEENT Head: Normocephalic, Atraumatic Eyes: Normal Pupils: PERRL Ears: Normal External canal: Normal Tympanic membrane: Normal Sinus: Normal Nasal: Clear rhinorrhea Pharynx: Normal Neck: Normal - Respiratory Respiratory status: No respiratory distress Chest status: Nontender Breath sounds: Normal Chest palpation: Normal - Cardiovascular Rhythm: Regular Heart sounds: Normal auscultation Murmur: No - Abdominal Inspection: Normal Distension: No distension Bowel sounds: Normal Tenderness: Nontender Organomegaly: No organomegaly - Back Back: Normal, Nontender - Extremities General upper extremity: Normal inspection, Nontender, Normal color, Normal ROM, Normal temperature General lower extremity: Normal inspection, Nontender, Normal color, Normal ROM, Normal temperature, Normal weight bearing. No: Pop's sign - Neurological Neuro grossly intact: Yes Cognition: Normal Orientation: AAOx4 Kena Coma Scale Eye Opening: Spontaneous Luke Coma Scale Verbal: Oriented Luke Coma Scale Motor: Obeys Commands Luke Coma Scale Total: 15 Speech: Normal Motor strength normal: LUE, RUE, LLE, RLE Sensory: Normal - Psychological Associated symptoms: Normal affect, Normal mood - Skin Skin Temperature: Warm Skin Moisture: Dry Skin Color: Normal Course - Re-evaluation Re-evalutation: 03/17/18 15:11 More likely patient has a possible underlying viral illness or environmental component for her nasal congestion did recommend [id number] Zyrtec Tylenol Motrin for pain control recommend follow-up primary care physician otherwise patient has normal physical examination - Vital Signs Vital signs: Temp Pulse Resp BP Pulse Ox 97.9 F 85 18 164/109 H 99 03/17/18 08:48 03/17/18 08:48 03/17/18 08:48 03/17/18 08:48 03/17/18 08:48 Discharge - Discharge Clinical Impression: URI (upper respiratory infection) Qualifiers: URI type: unspecified URI Qualified Code(s): J06.9 - Acute upper respiratory infection, unspecified Condition: Good Disposition: HOME, SELF-CARE Instructions: Family Physicians / Practices, Upper Respiratory Illness ([facility]) Additional Instructions: I recommend [id number] Zyrtec to help out with your nasal drainage and postnasal drip this also help out with your cough may take the Zofran as prescribed for any nausea that she may have your examination is consistent with a viral illness upper respiratory tract virus please follow-up with your primary care return to ER symptoms worsen. Prescriptions: Ondansetron [Zofran Odt 4 mg Tablet] 4 mg PO Q4HP PRN #30 tab.rapdis PRN Reason: Ibuprofen [Motrin 600 mg Tablet] 600 mg PO Q8HP PRN #21 tablet PRN Reason: Cetirizine HCl [Zyrtec] 10 mg PO DAILY #30 capsule Referrals: DONAL MARINELLI MD [ACTIVE STAFF] - Follow up in 3-5 days
== END 2018-03-17 09:45 | disposition home or self-care (01) ==
LOC: ER 08:44
DX: J06.9 Acute upper respiratory infection, unspecified (principal); R09.81 Nasal congestion; R06.02 Shortness of breath; J34.89 Other specified disorders of nose and nasal sinuses; I10 Essential (primary) hypertension; Z88.5 Allergy status to narcotic agent; Z88.2 Allergy status to sulfonamides
CPT/HCPCS: 99283; J3490

== ENCOUNTER 2019-01-17 11:14 | Emergency (ER) | payer MEDICAID ==
[2019-01-17 11:20] VITALS: BP 180/98
--- NOTE | 2019-01-17 11:27 | ER Document Report ---
HPI - HPI Time Seen by Provider: 01/17/19 11:21 Pain Level: Denies Notes: Patient is a 38-year-old female with past medical history of hypertension presenting to the emergency department after accidentally taking the wrong medication. Patient usually takes enalapril 20 mg daily. She went to the pharmacy to have her medications filled and they apparently gave her the wrong medication, gave her lisinopril 40 mg. She took a dose this morning. She has had no symptoms but is very worried that she may have overdosed herself. - REPRODUCTIVE Reproductive: DENIES: : Past Medical History - General Information source: Patient - Social History Smoking Status: Never Smoker Chew tobacco use (# tins/day): No Frequency of alcohol use: None Drug Abuse: None Family History: Reviewed & Not Pertinent Patient has suicidal ideation: No Patient has homicidal ideation: No - Past Medical History Cardiac Medical History: Reports: Hx Hypertension - ON MEDS Denies: Hx Coronary Artery Disease, Hx Heart Attack Pulmonary Medical History: Denies: Hx Asthma, Hx Bronchitis, Hx COPD, Hx Pneumonia Neurological Medical History: Denies: Hx Cerebrovascular Accident, Hx Seizures Renal/ Medical History: Denies: Hx Peritoneal Dialysis Musculoskeletal Medical History: Reports Hx Arthritis - LITA HANDS - Immunizations Hx Diphtheria, Pertussis, Tetanus Vaccination: No Vertical Provider Document - CONSTITUTIONAL Notes: PHYSICAL EXAMINATION: GENERAL: Well-appearing, well-nourished and in no acute distress. HEAD: Atraumatic, normocephalic. EYES: Pupils equal round extraocular movements intact, conjunctiva are normal. ENT: Nares patent NECK: Normal range of motion LUNGS: No respiratory distress Musculoskeletal: Normal range of motion NEUROLOGICAL: Normal speech, normal gait. PSYCH: Normal mood, normal affect. SKIN: Warm, Dry, normal turgor, no rashes or lesions noted. - INFECTION CONTROL TRAVEL OUTSIDE OF THE [place] IN LAST 30 DAYS: No Course - Re-evaluation Re-evalutation: 01/17/19 11:28 Patient is alert, oriented, blood pressure is in the 150s systolic on recheck. This medication at this dose should not cause any harm to the patient, this was reiterated to the patient and her family member. They verbalized understanding and agreement with discharge home. - Vital Signs Vital signs: Temp Pulse Resp BP Pulse Ox 98.5 F 84 20 180/98 H 98 01/17/19 11:19 01/17/19 11:19 01/17/19 11:19 01/17/19 11:19 01/17/19 11:19 Discharge - Discharge Clinical Impression: Drug ingestion, accidental Qualifiers: Encounter type: initial encounter Qualified Code(s): T50.901A - Poisoning by unspecified drugs, medicaments and biological substances, accidental (unintentional), initial encounter Condition: Stable Disposition: HOME, SELF-CARE Additional Instructions: The medicine that you took today was the same as your blood pressure medication the only differences it was a double dose. This should not cause you any problem. The worst problem I could see happening is your blood pressure getting a little lower than usual and you having some mild dizziness. Please do not take your own blood pressure medication today, take it tomorrow. Please let the pharmacy know that they made a mistake and gave you the wrong medication.
== END 2019-01-17 11:28 | disposition home or self-care (01) ==
LOC: ER 11:14
DX: T46.4X1A Poisoning by angiotensin-converting-enzyme inhibitors, accidental (unintentional), initial encounter (principal); I10 Essential (primary) hypertension
CPT/HCPCS: 99283

== ENCOUNTER 2019-03-03 12:44 | Day surgery (SDC) | payer MEDICAID ==
[2019-02-25 11:34] LABS: ABSOLUTE EOSINOPHILS # (AUTO) 0.1 10^3/uL (0.0-0.6); ABSOLUTE LYMPHOCYTES (AUTO) 1.9 10^3/uL (0.5-4.7); ABSOLUTE MONOCYTES (AUTO) 0.5 10^3/uL (0.1-1.4); ABSOLUTE NEUT (AUTO) 8.3 10^3/uL (1.7-8.2); BASOPHILS % (AUTO) 0.5 % (0-2); EOSINOPHILS % (AUTO) 0.5 % (0-6); HEMATOCRIT 45.6 % (36.0-47.0); HEMOGLOBIN 15.5 g/dL (12.0-15.5); LYMPHOCYTES % (AUTO) 17.8 % (13-45); MEAN CORPUSCULAR HEMOGLOBIN 27.6 pg (27.0-33.4); MEAN CORPUSCULAR VOLUME 81 fl (80-97); MONOCYTES % (AUTO) 4.5 % (3-13); PLATELET COUNT 697 10^3/uL (150-450); RED BLOOD COUNT 5.62 10^6/uL (3.72-5.28); RED CELL DISTRIBUTION WIDTH 14.9 % (11.5-14.0); SEGMENTED NEUTROPHILS % (AUTO) 76.7 % (42-78); TOTAL CELLS COUNTED % (AUTO) 100 %; WHITE BLOOD COUNT 10.8 10^3/uL (4.0-10.5)
[2019-02-25 11:56] LABS: ANION GAP 13 (5-19); BLOOD UREA NITROGEN 8 mg/dL (7-20); CALCIUM 10.1 mg/dL (8.4-10.2); CARBON DIOXIDE 24 mmol/L (22-30); CHLORIDE 103 mmol/L (98-107); GLUCOSE 92 mg/dL (75-110); POTASSIUM 4.6 mmol/L (3.6-5.0)
[~2019-03-03 12:44] MED LIST changes: -CEFAZOLIN 1 GM/D5W RTU 1 GM/50 ML RTUPB IV PRN; +CEFAZOLIN SODIUM 2 GM in DEXTROSE 5%-WATER 100 ML IV PRN; +FENTANYL CITRATE INJ/PF 100 MCG/2 ML AMPUL ONE; +MIDAZOLAM 2 MG/2 ML INJ ONE; +PROPOFOL INJ 200 MG/20 ML VIAL IV ONE
[2019-03-03] MEDS ORDERED: LIDOCAINE 1% INJ-PF (10 MG/ML) 30 ML SDV ONE (15:36)
[2019-03-03] MEDS ORDERED: PROMETHAZINE HCL INJ 25 MG/1 ML VIAL IV PRN ×2 (16:22)
[2019-03-03] MEDS ORDERED: DIPHENHYDRAMINE HCL 50 MG/ML VIAL IV PRN (16:22)
[2019-03-03] MEDS ORDERED: FENTANYL CITRATE INJ/PF 100 MCG/2 ML AMPUL IV PRN ×3 (16:22)
[2019-03-03] MEDS ORDERED: MORPHINE SULFATE 10 MG/ML INJ IV PRN (16:22)
[2019-03-03] MEDS ORDERED: MEPERIDINE HCL/PF INJ 25 MG/1 ML DISP.SYRIN IV PRN (16:22)
[2019-03-03] MEDS ORDERED: ONDANSETRON HCL INJ/PF 4 MG/2 ML SDV IV PRN (16:22)
[2019-03-03] MEDS ORDERED: HYDROCODONE/ACETAMINOPHEN 5-325 MG TABLET PO PRN (16:34)
--- NOTE | 2019-03-03 16:35 | Operative Report ---
Operative Report DATE OF SURGERY: 03/03/19 PREOPERATIVE DIAGNOSIS: Right middle trigger finger POSTOPERATIVE DIAGNOSIS: Same OPERATION: Right middle A1 magi release SURGEON: DEBO VACA ANESTHESIA: LMAC COMPLICATIONS: None ESTIMATED BLOOD LOSS: Minimal PROCEDURE: Indication for above procedure: 38-year-old female with catching and locking in her right middle finger. Diagnosis of trigger finger was confirmed. We discussed treatment options including operative versus nonoperative intervention decision was made to proceed with operative treatment. Risks and benefits were explained patient verbalized understanding consented for surgical procedure. Procedure in detail: Patient was seen and evaluated in the preoperative holding area. The RIGHT upper extremity was initialized and marked. Patient received 2g of Ancef IV for bacterial prophylaxis. Patient was taken back to the operative room where transferred to the operative table. Once they were adequately anesthetized a nonsterile tourniquet was placed on the upper extremity. A surgical team debriefing was performed ensuring all instrumentation was available, the surgi jazmin procedure was discussed with possible concerns reviewed. A digital block was performed utilizing 10 mL of 1% lidocaine without epinephrine. The upper extremity was prepped with chlorhexidine and alcohol and draped in a sterile fashion. A timeout was done identifying correct patient, procedure and extremity everyone in attendance agree with this and verbalized no concerns. The extremity was exsanguinated the tourniquet was inflated to 250 mmHg. Longitudinal skin incision was made centered over the A1 magi of the middle finger. The radial and ulnar neurovascular bundles were identified and retracted from the wound. The A1 magi was identified and incised. The A1 magi was released to the level of the A2 magi but not through the A2 magi. The palmar aponeurotic magi was released proximal to the A1 magi. Patient was then awoken from MAC anesthesia and made a full embedded systems designer there is no evidence of residual triggering or locking. The wound was then copiously irrigated with normal saline. Skin was closed with interrupted 4-0 nylon suture. Wound was dressed with Xeroform and a soft dressing. Sponge counts, instrument counts, needle counts counts were correct. Patient was then awoken from anesthesia. Transferred from the operating room table to the operating room stretcher. There was no intraoperative complications patient tolerated procedure well stable to PACU. Postoperative plan: Patient will follow-up as scheduled for wound check. They will call with any questions or concerns.
--- NOTE | 2019-03-03 16:35 | Discharge Summary ---
Discharge Summary (SDC) - Discharge Final Diagnosis: Right middle trigger finger Date of Surgery: 03/03/19 Discharge Date: 03/03/19 Condition: Good Treatment or Instructions: Schedule Follow Up w/ Dr. Noel Vaca @ [facility] for Surgery to be seen in 10-14 days or as scheduled [place]: [place]: May remove dressing on postop day #3, keep incision covered and dry. Ice and elevate May begin finger range of motion attempting to make full fist. Stool softener of choice when on pain medication. USE OF [id number] IBUPROFEN: Ibuprofen (Advil, Nuprin, Medipren, Motrin IB) is a medication for fever and pain control. In addition, it has anti- inflammatory effects which may be beneficial, especially in the treatment of injuries. It's best to take ibuprofen with food. Persons with ulcer disease or allergy to aspirin should notify their physician of this before taking ibuprofen. Ibuprofen can be given every four to six hours, for a total of four doses daily. Age Pain or fever dose Antiinflammatory dose 6-8 yr 200 mg (1 tab) 200 mg (1 tab) 9-11 yr 200 mg (1 tab) 200-400 mg (1-2 tab) 11-14 yr 200-400 mg (1-2 tab) 400 mg (2 tab) 15-adult 400 mg (2 tab) 600 mg (3 tab) ORAL NARCOTIC MEDICATION: You have been given a prescription for pain control. This medication is a narcotic. It's best taken with food, as nausea can result if taken on an empty stomach. Don't operate machinery or drive within six hours of taking this medication. Do not combine this medicine with alcohol, or with any medication which can cause sedation (such as cold tablets or sleeping pills) unless you get permission from the physician. Narcotics tend to cause constipation. If possible, drink plenty of fluids and eat a diet high in fiber and fruits. Please be aware that prescription narcotics also have the potential for abuse. People become addicted to these medications because of the general sense of wellbeing that they induce. This feeling along with a significant reduction in tension, anxiety, and aggression provides a stimulating seductive quality to these drugs. Once your pain is under control, we encourage you to discard your unused narcotics. Prescriptions: Hydrocodone/Acetaminophen [[place] 5-325 mg Tablet] 1 tab PO Q6 PRN #12 tablet PRN Reason: Referrals: NOEL VACA DO [ACTIVE STAFF] - 03/13/19 8:00 am Discharge Diet: As Tolerated Respiratory Treatments at Home: Deep Breathing/Coughing, Incentive Spirometer Discharge Activity: No Lifting Over 10 Pounds, No Lifting/Push/Pulling Report the Following to Your Physician Immediately: Fever over 101 Degrees, Unusual Bleeding, Redness, Swelling, Warmth, Increased Soreness
[2019-03-03] MEDS ORDERED: HYDROCODONE/ACETAMINOPHEN 5-325 MG TABLET ONE (17:10)
[2019-03-03 19:09] VITALS: BP 155/110
== END 2019-03-03 18:53 | disposition home or self-care (01) ==
LOC: OROUT 12:44
PROVIDERS: ATTEND Orthopaedic Surgery
DX: M65.332 Trigger finger, left middle finger (principal); M65.331 Trigger finger, right middle finger; Z79.899 Other long term (current) drug therapy; E78.5 Hyperlipidemia, unspecified; I10 Essential (primary) hypertension; Z88.5 Allergy status to narcotic agent; Z88.2 Allergy status to sulfonamides; R01.1 Cardiac murmur, unspecified
CPT/HCPCS: 36415; 84132; 85025; 80048; 01810; 26055; J2250; J0690; J3010; J3490; J7060; J2704; 1810

== ENCOUNTER → 2019-09-03 | Outpatient (CLI) | payer MEDICAID ==
--- NOTE | 2019-09-03 17:00 | RADIOLOGY REPORT (SQ) ---
EXAM DESCRIPTION: ARTERIAL LOWER EXTREM BILAT IMAGES COMPLETED DATE/TIME: 09/03/2019 3:25 pm REASON FOR STUDY: LEFT CALF ULCER L97.222 NON-PRESSURE CHRONIC ULCER OF LEFT CALF W FAT LAYER COMPARISON: None. TECHNIQUE: Dynamic and static grey scale and color images acquired of the lower extremity arteries. Additional selected spectral images recorded. LIMITATIONS: None. FINDINGS: RIGHT LEG: INFLOW ARTERIES: Normal, no obstruction evident. FEMORAL ARTERIES:Triphasic waveforms. Normal, no velocity elevation to suggest focal stenosis. Normal color Doppler evaluation. No aneurysm. POPLITEAL ARTERY:Triphasic waveforms. Normal, no velocity elevation to suggest focal stenosis. Normal color Doppler evaluation. No aneurysm. PATENT TIBIOPERONEAL TRUNK AND 3 VESSEL RUNOFF: Yes, normal vessels. OTHER: No other significant finding. LEFT LEG: INFLOW ARTERIES: Normal, no obstruction evident. FEMORAL ARTERIES:Triphasic waveforms. Normal, no velocity elevation to suggest focal stenosis. Normal color Doppler evaluation. No aneurysm. POPLITEAL ARTERY:Triphasic waveforms. Normal, no velocity elevation to suggest focal stenosis. Normal color Doppler evaluation. No aneurysm. PATENT TIBIOPERONEAL TRUNK AND 3 VESSEL RUNOFF: Proximal posterior tibial and anterior tibial artery are patent. Unable to visualize the mid and distal vessels due to overlying bandage. OTHER: No other significant finding. IMPRESSION: NORMAL BILATERAL LOWER EXTREMITY ARTERIAL DOPPLER. TECHNICAL DOCUMENTATION: JOB ID: [id number] 2010 [employer]- All Rights Reserved Reading location - IP/workstation name: [email or web address]
== END ==
LOC: SP 13:09
PROVIDERS: ATTEND Plastic Surgery
DX: L97.222 Non-pressure chronic ulcer of left calf with fat layer exposed (principal)
CPT/HCPCS: 93925